=== PATIENT | female | born 1965 | race Caucasian/White ===

== ENCOUNTER 2016-07-28 13:09 | Inpatient (IN) | payer BC, MEDICARE, OTHER ==
[~2016-07-28] VITALS: Ht 167.6 cm; Wt 91.7 kg
--- NOTE | ~2016-07-28 | OR ---
ADMIT: 07/28/2016 RM/LOC: 427 [facility] MR#: [id number] [address] [address] ADAN QUEEN [address] [place] [address] Operative/Delivery Room Report SEX: F AGE: 50 : 1965 SURGERY DATE: 07/29/2016 SURGEON: Geronimo Still MD PREOPERATIVE DIAGNOSIS: Left lower extremity nonhealing wound with cellulitis and undermining. POSTOPERATIVE DIAGNOSIS: Left lower extremity nonhealing wound with cellulitis and undermining. PROCEDURE PERFORMED: Debridement of skin and subcutaneous fat from left lower leg wound. This measured 11 cm in length, 3.5 cm in width, and 1.5 cm deep. ANESTHESIA: Local MAC. ESTIMATED BLOOD LOSS: 20 mL. DESCRIPTION OF PROCEDURE: After appropriate informed consent was obtained, the patient was brought to the operating room. IV sedation was provided. Her left leg was prepped and draped in a sterile fashion. She had this wound that the skin edges were undermined. She had purulent fluid in the depths of this wound, so, I did cut back all the skin edges where it was undermined and then used a curette to debride out the base of the wound and get down to good healthy tissue. Total area that was removed was 11 x 3.5 cm and then again, this was 1.5 cm deep, so skin and subcutaneous fat were removed. A portion of this was sent for histology and so it was also sent for tissue culture. The wound, once it was irrigated out copiously, cautery was used to control any bleeding and once I was satisfied with hemostasis, the wound was then packed with Betadine-soaked Kerlix gauze and 4 x 4 and then ABD held in place with loosely-wrapped Mitch bandage. The patient tolerated the procedure well and was taken to the recovery room in stable condition. Geronimo Still MD/ casper JOB #: [id number] CC: Kirsten Emmanuel MD, Attending Physician Kenyon Acosta MD, Family Physician Kirsten Emmanuel MD
--- NOTE | ~2016-07-28 | DS ---
ADMIT: 07/28/2016 RM/LOC: 427 [facility] MR#: [id number] [address] [address] ADAN QUEEN [address] [place] [address] Discharge Summary SEX: F AGE: 50 : 1965 ADMISSION DATE: 07/28/2016 DISCHARGE DATE: 07/30/2016 PRIMARY DISCHARGE DIAGNOSES: 1. Left lower extremity cellulitis. 2. Left lower extremity abscess. 3. Multiple sclerosis. HOSPITAL COURSE: The patient was seen at Wound Clinic for left lower extremity nonhealing traumatic ulcer and was noted to have significant purulent drainage from the incision site. She was recently debrided by Dr. Still on July 23, 2016, and 10 cm abscess was evacuated. She still had significant erythema and purulent drainage, and she was taken again to OR by Dr. Still on July 29, 2016, and extensive debridement of the skin and subcutaneous fat was done measuring 11 x 3.5 x 1.5 cm. Her blood cultures remain no growth to date at the time of discharge, and OR cultures are pending. Her condition was stable throughout the hospital course. She was given IV Zosyn and will be switched to Augmentin at the time of discharge. She will continue with wound vac dressing as an outpatient and follow up with wound clinic. DISCHARGE MEDICATIONS: 1. Augmentin 875 mg twice daily for 2 weeks until 08/12/2016. 2. Tolterodine 2 mg t.i.d. 3. Gilenya 0.5 mg once daily. 4. Baclofen 20 mg t.i.d. 5. Cranberry extract. 6. Docusate 100 mg b.i.d. 7. Ibuprofen 600 mg once daily as needed. Kirsten Emmanuel MD/ zion JOB #: [id number] CC: Kirsten Emmanuel MD, Attending Physician Kenyon Acosta MD, Family Physician
--- NOTE | ~2016-07-28 | CO ---
ADMIT: 07/28/2016 RM/LOC: 427 [facility] MR#: [id number] [address] [address] ADAN QUEEN [address] [place] [address] Consultation SEX: F AGE: 50 : 1965 DATE OF CONSULTATION: 07/28/2016 ATTENDING PHYSICIAN: Kirsten Emmanuel MD CONSULTING PHYSICIAN: Geronimo Still MD CHIEF COMPLAINT: Left leg ulceration and cellulitis. HISTORY OF PRESENT ILLNESS: This is a 50-year-old female patient whom I know from the injury that she had to her left leg, hematoma became secondarily infected. I opened this up last week in Wound Care, but the redness and cellulitis has progressed proximally and there is more undermining of wound edges. I was asked to see her for possible debridement. PHYSICAL EXAMINATION: On exam, she does have some surrounding cellulitis, undermining of the wound edges, and some purulent drainage from this wound on her left leg. ASSESSMENT: Nonhealing left leg ulcer with cellulitis and purulent drainage. PLAN: I do think this needs to be debrided further and we will plan on doing this in the OR tomorrow. I have gone through risks and benefits of this procedure in depth with the patient. She understands all this and agrees to proceed. Geronimo Still MD/ modl JOB #: [id number] CC: Kirsten Emmanuel MD, Attending Physician Kenyon Acosta MD, Family Physician
[~2016-07-28 13:09] MED LIST: BACLOFEN10 MG PO; CLEOCIN HCL300 MG PO; COLACE-DPS100 MG PO; CRANBERRY425 MG PO; DETROL LA DPS4 MG PO; GILENYA0.5 MG PO; LIORESAL DPS20 MG PO; LYRICA50 MG PO; NORCO 5-325 TA1 EACH PO; THERA1 EACH PO; ULTRAM DPS50 MG PO; VISION VITAMIN1 EACH PO; [UNRECOGNIZED DRUG - OTHER] PO
[2016-07-31] MEDS ORDERED: COLACE-DPS100 MG PO (06:43)
[2016-07-31] MEDS ORDERED: IBUPROFEN600 MG PO (06:44)
[2016-07-31] MEDS ORDERED: AUGMENTIN875 MG PO (06:45)
[2016-07-31] MEDS ORDERED: ZOFRAN4 MG PO (06:46)
--- NOTE | 2016-08-04 19:27 | CO ---
ADMIT: 07/28/2016 RM/LOC: 427 [facility] MR#: [id number] [address] [address] VENECIA QUEEN [address] [place] [address] Consultation SEX: F AGE: 50 : 1965 DATE OF CONSULTATION: 07/28/2016 ATTENDING PHYSICIAN: Kirsten Emmanuel MD CONSULTING PHYSICIAN: Geronimo Still MD REASON FOR CONSULTATION: Left leg cellulitis and wound. HISTORY OF PRESENT ILLNESS: Venecia is a very pleasant 50-year-old female, who has been suffering from an ongoing left leg ulceration, cellulitis, and wound since May where she fell walking upstairs and scraped her left fong. When this occurred, there was a large hematoma to which Dr. Erazo evacuated. Then, it was noted back on July 23 that the patient started to develop a left pretibial abscess, to which Dr. Still I and D'd and was able to express some purulent discharge. Since then, she has had a wound VAC on that she was tolerating well up until approximately a few days ago where she noticed increased edema, redness, pain, and some purulent discharge. She denies any issues with right leg or fever, chills, or night sweats. She was initially seen in Wound Care today where the Wound Care nurses and VIDEO MACHINES MECHANIC cleaned up the wound and was able to express some purulent discharge while testing for tunneling. PAST MEDICAL HISTORY: Significant for multiple sclerosis. PAST SURGICAL HISTORY: 1. I and D of left pretibial abscess on 07/23/2016, performed by Dr. Still. 2. Tubal ligation. 3. D and C. ALLERGIES: NO KNOWN DRUG ALLERGIES. MEDICATIONS: Well documented in chart. FAMILY HISTORY: No pertinent history. SOCIAL HISTORY: The patient denies any alcohol, tobacco, or illicit drug use. REVIEW OF SYSTEMS: CONSTITUTIONAL: The patient denies any fever, chills, or night sweats. The rest of a comprehensive 10-point review of systems was performed and all other systems are negative. PHYSICAL EXAMINATION: GENERAL: The patient is in no acute distress. She is alert and oriented. HEENT: Head is normocephalic and atraumatic. EOMs are intact. Conjunctivae are free of icterus, erythema, or pallor. Pinnae, free of deformities. Nose is midline. No tracheal deviation. NECK: Supple. ADMIT: 07/28/2016 RM/LOC: 427 [facility] MR#: [id number] [address] [address] BERNICE VENECIA [address] [place] [address] Consultation SEX: F AGE: 50 : 1965 SKIN: Negative for jaundice, clubbing, edema, pallor, or cyanosis. LUNGS: Normal respiratory effort. HEART: Distal pulses intact. Regular rate and rhythm. ABDOMEN: Soft, nondistended, and nontender. MUSCULOSKELETAL: Full range of motion in all 4 extremities. Cellulitis, linear incision of wound and ulcer noted on left lower extremity. Tender superior to the linear incision. This has been packed. No purulence or fluctuant mass noted upon palpation. There was no discharge during my assessment. NEURO: Grossly intact. ASSESSMENT: Persistent left leg abscess. PLAN: In evaluating the patient, I do not see an obvious abscess that needs to be drained at this time. However, given the cellulitis and the ulcerative and linear wounds, she does need dressing changes and antibiotics, that of which I will defer to her admitting physician and Wound Care Nursing. She could also probably benefit from re-application of wound VAC. I discussed my findings with the patient and her family who was present during my whole assessment. They are in agreement of this plan. I had all their questions answered, would like to proceed. I will notify Dr. Still of this consult and we will follow her should she remain in the hospital. Thank you for the consultation on this patient. KAY Coles / Geronimo Still MD / casper JOB #: [id number] CC: Kirsten Emmanuel MD, Attending Physician Kenyon Acosta MD, Family Physician
[2016-11-26] MEDS ORDERED: ZYPREXA2.5 MG PO (18:01)
[2016-11-26] MEDS ORDERED: ZANAFLEX4 MG PO (18:01)
[2016-11-26] MEDS ORDERED: [UNRECOGNIZED DRUG - OTHER] PO (18:01)
[2016-11-26] MEDS ORDERED: STOOL SOFTENER100 MG PO (18:02)
[2016-11-26] MEDS ORDERED: THERA1 EACH PO (18:02)
[2016-11-26] MEDS ORDERED: GILENYA0.5 MG PO (18:02)
[2016-11-26] MEDS ORDERED: EFFEXOR XR37.5 M1 PO (18:02)
[2016-11-26] MEDS ORDERED: KEFLEX-DPS500 MG PO (18:03)
== END 2016-07-30 14:25 | disposition home or self-care (01) | DRG 571 ==
LOC: 4PCU 13:09
PROVIDERS: ADMIT Internal Medicine Infectious Disease
PROC: 0JBP0ZZ Excision of Left Lower Leg Subcutaneous Tissue and Fascia, Open Approach (ICD-10-PCS; principal; 2016-07-29)
DX: L02.416 Cutaneous abscess of left lower limb (principal); L97.929 Non-pressure chronic ulcer of unspecified part of left lower leg with unspecified severity; G35 Multiple sclerosis; L03.116 Cellulitis of left lower limb; S80.12XS Contusion of left lower leg, sequela

== ENCOUNTER 2016-11-20 10:51 | Emergency (ER) | payer BC, MEDICARE ==
[~2016-11-20 10:51] MED LIST changes: +AUGMENTIN875 MG PO; +IBUPROFEN600 MG PO; +ZOFRAN4 MG PO
--- NOTE | 2016-11-26 14:24 | ER ---
ADMIT: 11/20/2016 RM/LOC: ER [facility] MR#: [id number] [address] [address] ADAN QUEEN [address] [place] [address] Emergency Room Report SEX: F AGE: 51 : 1965 DATE: 11/20/2016 The patient is a 51-year-old female who presents to emergency room with right ankle pain. She has MS and last night, she kind of twisted her ankle as she was trying to get out of bed. She says she cannot put any weight on it. She ambulates with a walker normally and she has been having wound treatment on her left lower leg and has an Mitch wrap and pressure stockings on it. ALLERGIES: SHE HAS ALLERGIES TO LYRICA AND GABAPENTIN. SHE IS HERE WITH HER FAMILY. PHYSICAL EXAMINATION: VITAL SIGNS: Within normal limits. See T-sheet for that presentation. No erythema, no swelling, no deformity on the lateral aspect of her ankle. However, she does admits to having some weakness and unable to walk on that foot. I am not certain this is a result of her MS at this point, but the x-ray does not show any pathology or any fracture. So I am calling this as a sprain. She was put on a splint, an Mitch wrap, postop shoe or boot and follow up with primary provider. If she continues with pain, she may need to have another x-ray in a week to rule out a hairline fracture. Follow up with Dr. Acosta. Continue home medications. DIAGNOSIS: Right ankle sprain. KAY Slater / Sancho Flynn MD / casper JOB #: [id number] CC: Sancho Flynn MD, Attending Physician Kenyon Acosta MD, Family Physician
[2016-11-26] MEDS ORDERED: [UNRECOGNIZED DRUG - OTHER] PO (18:01)
[2016-11-26] MEDS ORDERED: ZYPREXA2.5 MG PO (18:01)
[2016-11-26] MEDS ORDERED: ZANAFLEX4 MG PO (18:01)
[2016-11-26] MEDS ORDERED: STOOL SOFTENER100 MG PO (18:02)
[2016-11-26] MEDS ORDERED: THERA1 EACH PO (18:02)
[2016-11-26] MEDS ORDERED: GILENYA0.5 MG PO (18:02)
[2016-11-26] MEDS ORDERED: EFFEXOR XR37.5 M1 PO (18:02)
[2016-11-26] MEDS ORDERED: KEFLEX-DPS500 MG PO (18:03)
== END 2016-11-20 12:40 | disposition home or self-care (01) ==
LOC: ER 10:51
DX: S93.491A Sprain of other ligament of right ankle, initial encounter (principal); X50.9XXA Other and unspecified overexertion or strenuous movements or postures, initial encounter

== ENCOUNTER 2016-11-23 13:37 | Inpatient (IN) | payer BC, MEDICARE ==
[~2016-11-23] VITALS: Ht 167.6 cm; Wt 93.2 kg
[2016-11-26] MEDS ORDERED: ZYPREXA2.5 MG PO (18:01)
[2016-11-26] MEDS ORDERED: [UNRECOGNIZED DRUG - OTHER] PO (18:01)
[2016-11-26] MEDS ORDERED: ZANAFLEX4 MG PO (18:01)
[2016-11-26] MEDS ORDERED: STOOL SOFTENER100 MG PO (18:02)
[2016-11-26] MEDS ORDERED: EFFEXOR XR37.5 M1 PO (18:02)
[2016-11-26] MEDS ORDERED: THERA1 EACH PO (18:02)
[2016-11-26] MEDS ORDERED: GILENYA0.5 MG PO (18:02)
[2016-11-26] MEDS ORDERED: KEFLEX-DPS500 MG PO (18:03)
--- NOTE | 2016-12-01 07:55 | HP ---
ADMIT: 11/23/2016 RM/LOC: 519 [facility] MR#: [id number] [address] [address] VENECIA QUEEN [address] [place] [address] History and Physical SEX: F AGE: 51 : 1965 DATE OF SERVICE: CHIEF COMPLAINT: Ankle pain. HISTORY OF PRESENT ILLNESS: Venecia is a very nice 51-year-old female, who is previously known to my service. She does see my partner, Dr. Kenyon Acosta. She is treated for multiple sclerosis as well as hyperlipidemia. She does have some chronic pain. Most recently, has been dealing with a nonhealing left lower extremity wound. This wound has been healing nicely and does have Wound Care following closely. She has been having increased falls recently. She had fallen previously, came into the ER. She had no evidence of any fractures or anything like that. She did go home, fell 2 more additional times, came back with increased pain and she actually was noted to have a right fibular fracture that is mildly displaced. She was also noted to have overlying erythema as well as it was quite warm to the touch. She was evaluated in the ER. There was appropriate goal-directed therapy. The patient is initiated on antibiotic therapy and a splint is placed. I evaluated her at her bedside in room 4. She endorses the above history and states that she is actually under pretty good pain control. She is not having any other complaints outside of frequent falling. Unclear if this does represent a potential exacerbation of her multiple sclerosis. PAST MEDICAL HISTORY: 1. Hyperlipidemia. 2. MS. 3. Left leg wound. 4. Chronic back pain. MEDICATIONS: 1. Gilenya. 2. Lasix. 3. Multivitamin. 4. Zyprexa. 5. Potassium chloride. 6. Zanaflex. 7. Detrol. 8. Effexor. ALLERGIES: NO KNOWN MEDICAL ALLERGIES. FAMILY HISTORY: Reviewed and is noncontributory to her current admission for trauma. SOCIAL HISTORY: She smokes. She does not drink. She does not do drugs. She is in a relationship. She does have a supportive network. REVIEW OF SYSTEMS: Complete review of systems reviewed per HPI. ADMIT: 11/23/2016 RM/LOC: 519 [facility] MR#: [id number] [address] [address] VENECIA QUEEN [address] [place] [address] History and Physical SEX: F AGE: 51 : 1965 PHYSICAL EXAMINATION: VITAL SIGNS: Blood pressure 106/63, pulse is 89, respiratory rate is 16, and temperature is 97.4. GENERAL: Alert and oriented x3. No acute distress. HEENT: Normocephalic, atraumatic. Extraocular movements intact. Pupils equally round and responsive to light. No nasal discharge. NECK: Supple. HEART: Regular rhythm and rate. LUNGS: Distant but clear. ABDOMEN: Soft, nontender. EXTREMITIES: She has a warm right lower extremity. She has a nonhealing ulcer of left lower extremity. X-rays are reviewed and she does have a fracture. LABORATORY DATA: Blood cultures are drawn and pending. White blood cells are 7.6, hemoglobin 7.3, and platelets are 409. Lactic acid is 0.9. CMP; sodium is 144, potassium is 4.2, chloride is 108, carbon dioxide 28, BUN is 21, blood glucose is 113, creatinine 0.8, calcium is 8.8, bilirubin 0.4, total protein 6.9, albumin is 3.2, AST is 46, ALT is 32, and procalcitonin is 0.05. X-ray, broken ankle. ASSESSMENT/PLAN: 1. Right distal fibular fracture. 2. Right lower extremity cellulitis. 3. Multiple sclerosis. We will go ahead and admit her to an inpatient status, give her some gentle fluids at 75 mL an hour. We will put her on some vancomycin and Zosyn for her cellulitis, we will have Ortho consult. She does have a splint in place. We will have her go reconcile her medications and when they do have these reconciled, we will have them contact this physician and we will restart them as appropriate. She will hold on DVT prophylaxis at this time until it is determined that she does not need any type of surgical intervention. She is a full code. Guero Galindo MD/ casper JOB #: [id number] CC: Kenyon Acosta MD, Attending Physician Kenyon Acosta MD, Family Physician
--- NOTE | 2016-12-04 14:22 | ER ---
ADMIT: 11/23/2016 RM/LOC: 519 [facility] MR#: [id number] [address] [address] ADAN QUEEN [address] [place] [address] Emergency Room Report SEX: F AGE: 51 : 1965 DATE: 11/23/2016 ADDENDUM: CHIEF COMPLAINT: Right ankle pain. HISTORY OF PRESENT ILLNESS: This is a 51-year-old, who has a history of MS. She has had multiple falls in the last week. In fact, she was here 2 or 3 days ago, had x-ray of this right ankle, was negative for any fracture at that time. She has fallen twice since then and has had increased pain in the ankle. COURSE IN EMERGENCY ROOM: CBC, CMP, lactic acid, procalcitonin, and x-ray of the right ankle and right hip were done. Overall findings, she does have a fibular fracture that is displaced but closed on the right. Right hip is negative for any fracture. Labs, procalcitonin is less than 0.05, lactic acid is 0.9. CMP is normal except for potassium of 3.2, blood glucose of 113, and AST of 46. CBC is normal except for hemoglobin of 11.3 and platelets of 406, white count normal at 7.6. On top of the fracture, she also has a cellulitis over the ankle area, also healing wound on the left lower leg. I did speak with Dr. Galindo concerning this patient, he is admitting. Ortho is being consulted. CLINICAL IMPRESSION: 1. Right closed distal fibular fracture, displaced. 2. Cellulitis of the right ankle. 3. Multiple falls secondary to multiple sclerosis. DISPOSITION: She is stable at admit. KAY Asif / Guero Garcia MD / casper JOB #: [id number] CC: Kenyon Acosta MD, Attending Physician Kenyon Acosta MD, Family Physician
--- NOTE | 2016-12-19 13:15 | DS ---
ADMIT: 11/23/2016 RM/LOC: 519 [facility] MR#: [id number] [address] [address] ADAN QUEEN [address] [place] [address] General Discharge Summary SEX: F AGE: 51 : 1965 ADMISSION DATE: 11/23/2016 DISCHARGE DATE: 11/25/2016 FINAL DIAGNOSES: 1. Ankle fracture. 2. Multiple sclerosis. 3. Leg wound with cellulitis. 4. Chronic pain. REASON FOR ADMISSION: This is a 51-year-old female, presented with increased pain, cellulitis to her leg. She with a recent ankle fracture. HOSPITAL COURSE: She was admitted, placed on IV antibiotics. She received some pain medication. Orthopedic consult obtained for the ankle fracture and wound consult felt she should be nonweightbearing to the right lower extremity and wanted this splint left in place as well as PT and OT, so this was arranged. She was doingokay with therapy. She is set up to be home. She did have some hallucinations recently by history, so she has had an MRI of her brain, which ultimately showed chronic changes of MS. She had some low potassium and this was replaced on the day of discharge and she was set up to be discharged home. MEDICATIONS: She is on: 1. Colace 100 mg b.i.d. 2. Detrol 2 mg t.i.d. 3. Effexor 37.5 mg daily. 4. Zanaflex 2 mg t.i.d. 5. Zyprexa 2.5 mg at bedtime. 6. Keflex 1 g b.i.d. for 7 more days. Follow up with me in 1 to 2 weeks. Kenyon Acosta MD/ casper JOB #: [id number] CC: Kenyon Acosta MD, Attending Physician Kenyon Acosta MD, Family Physician
--- NOTE | 2016-12-29 11:55 | CO ---
ADMIT: 11/23/2016 RM/LOC: 519 [facility] MR#: [id number] [address] [address] VENECIA QUEEN [address] [place] [address] Consultation SEX: F AGE: 51 : 1965 DATE OF CONSULTATION: 11/24/2016 ATTENDING PHYSICIAN: Kenyon Acosta MD CONSULTING PHYSICIAN: Viviana Mendes MD CHIEF COMPLAINT: Right ankle fracture. HISTORY OF PRESENT ILLNESS: This is a 51-year-old female, who was admitted last evening due to a right ankle fracture. She had a history of multiple sclerosis and regularly uses a walker for ambulation. She has a history of some tingling and paresthesias in her toes. She had a couple of falls within the last week. She was seen in the Emergency Department on 11/20/2016 after suffering a fall and twisting her right ankle. X-rays at that time were negative for fracture. She was treated as a sprain and had some mild swelling and discharged last evening on 11/23. She had another fall and injured her right ankle again. She was seen in the Emergency Department. X-rays obtained at this point in time did show a closed right distal fibular fracture without displacement of the ankle mortise. Apparently, she was also diagnosed with cellulitis of the right ankle, however, she does have it on the left. She had no other problems with her ankle other than the twisting a couple of days prior. Nonetheless, she is placed into a posterior splint and admitted on IV antibiotics due to cellulitis. No other injuries sustained in this accidental fall. ALLERGIES: NO KNOWN MEDICAL ALLERGIES. MEDICATIONS: Reviewed and noted in electronic medical record. PAST MEDICAL HISTORY: Hyperlipidemia, multiple sclerosis, left leg wound, chronic back pain. FAMILY HISTORY: Noncontributory. SOCIAL HISTORY: She is a smoker. No alcohol. Lives in [place]. REVIEW OF SYSTEMS: Negative other than those reported in the HPI. PHYSICAL EXAMINATION: GENERAL: Otherwise, comfortable well-appearing 51-year- old female, who is in no distress. She is oriented x3. Pleasant and interactive. She is lying comfortably in her hospital bed in room #519. EXTREMITIES: Exam of the right lower extremity shows that she has a posterior splint on with her leg in about 35 degrees of plantar flexion. The posterior spine goes up to the base of the calf muscle. Removal that shows that her skin is intact anteriorly and then medial and laterally on the posterior aspect of the ankle about 3 cm proximal to the insertion of the Achilles, she has a 2 cm superficial lesion, drying. There are no signs of infection. No significant erythema surrounding to suggest infection of this skin lesion. The remainder of the skin is intact. She has mild erythema and diffuse swelling consistent ADMIT: 11/23/2016 RM/LOC: 519 [facility] MR#: [id number] [address] [place] [id number] STACYFabi VENECIA [address] [place] [address] Consultation SEX: F AGE: 51 : 1965 with that of an ankle sprain three days prior. She was tender to palpation mildly around the medial malleolus. Definitely more so over the lateral malleolus as well as the anterior tibial fibular ligament. She has light paresthesias at the tips of the toes which is normal for her secondary to multiple sclerosis. Remainder of her neurovascular status is intact. IMAGING: Reviewed previously obtained x-rays both from 11/20 which I agreed, showed no sign of fracture as well as taken last night, on 11/23 which do show a lateral malleolus fracture, oblique to the posterior from the joint line consistent with a Dove B fracture. There is suspicious for minimal widening on the medial side of the joint line, but overall the mortise was satisfactorily maintained. I did go ahead and do stress x-rays of the joint to check for changes in the mortise and those do show to be stable without any increased widening from the views taken yesterday. ASSESSMENT: Right ankle Dove B distal fibular fracture. PLAN: Right now, appears to be a stable fracture, not entirely sure if they are treating her for what was thought to be possible cellulitis in the right ankle versus left and the documentation does not specify during the to have any evidence of cellulitis to knee on exam today, however, she does have swelling which appeared consistent with her ankle sprain three days prior. Nonetheless, at this time, turning to be a stable fracture, we will manage it conservatively initially. I did place her back into a long posterior splint from the posterior aspect just below the knee all the way to her toes. She is comfortable now. We flexed her to 90 degrees and on a splint to stabilize the fracture. She will be non-weight bearing. We will recheck her next week as an outpatient in the office and will be x-rayed at that point as well. Further discussion of continued management operative versus nonoperative. I would like to thank Dr. Acosta for requesting Orthopedic consultation and allowing us to participate in Venecia's care. Tom Ron PA-C / Viviana Mendes MD / nathanaell JOB #: [id number] CC: Kenyon Acosta MD, Attending Physician Kenyon Acosta MD, Family Physician Kenyon Acosta MD
== END 2016-11-25 16:33 | disposition home or self-care (01) | DRG 563 ==
LOC: ER 13:37 → 5MS 16:19
PROVIDERS: ADMIT Internal Medicine
DX: S82.831A Other fracture of upper and lower end of right fibula, initial encounter for closed fracture (principal); L03.115 Cellulitis of right lower limb; L97.929 Non-pressure chronic ulcer of unspecified part of left lower leg with unspecified severity; R44.3 Hallucinations, unspecified; R20.9 Unspecified disturbances of skin sensation; G35 Multiple sclerosis; W19.XXXA Unspecified fall, initial encounter; E78.5 Hyperlipidemia, unspecified; F17.210 Nicotine dependence, cigarettes, uncomplicated; M54.9 Dorsalgia, unspecified; G89.29 Other chronic pain; Z91.81 History of falling